=== PATIENT | male | born 1950 | race American Indian/Alaskan Native ===

== ENCOUNTER 2019-12-20 07:49 | Outpatient (CLI) | payer OTHER ==
--- NOTE | 2019-12-20 08:44 | Cat Scan Report ---
CT ABDOMEN AND PELVIS WITHOUT CONTRAST HISTORY: C61 MALIGNANT NEOPLASM OF PROSTATE COMPARISON: None. TECHNIQUE: Axial CT images were obtained through the abdomen and pelvis without IV contrast. Sagittal and coronal reformatted images. All CT scans at this location are performed using CT dose reduction for ALARA by means of automated exposure control. FINDINGS: CT ABDOMEN: Lung Bases: Clear. Liver: No significant abnormality. Biliary: Cholecystectomy. No biliary dilatation. Spleen: No significant abnormality. Unenlarged. Pancreas: No significant abnormality. Adrenals: No significant abnormality. 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 The left kidney is normal size and position. There ar e 3 calyceal stones in the mid left kidney measuring up to 5 mm. No associated hydronephrosis. 1 cm r enal parapelvic cyst is noted. Lymphatics: No lymphadenopathy. Vasculature: Moderate to severe diffuse calcifications in the distal aorta and iliac arteries. A left common and external iliac stent are in place. Femoral to femoral anastomosis graft is also noted. Bowel/Peritoneum: No significant abnormality. No free air. No free fluid. Normal appendix. CT PELVIS: : The prostate gland is normal size and contains radiotherapy beads. The bladder and distal ureters are unremarkable. Osseous Structures: No suspicious blastic bony lesions are detected. Additional Findings: None IMPRESSION: No evidence for metastatic disease. Right nephrectomy changes. Left nephrolithiasis, nonobstructing. Moderate to severe atherosclerotic disease of the aorta and iliac arteries. Signer Name: Dave Sewell Jr, MD Signed: 12/20/2019 8:39 AM Workstation Name: [id number]
== END 2019-12-20 07:50 | disposition home or self-care (01) ==
LOC: CT 07:49
PROVIDERS: ATTEND Urology
DX: N20.0 Calculus of kidney (principal); I70.0 Atherosclerosis of aorta; N28.1 Cyst of kidney, acquired; Z90.5 Acquired absence of kidney; C61 Malignant neoplasm of prostate; Z90.49 Acquired absence of other specified parts of digestive tract; Z98.890 Other specified postprocedural states
CPT/HCPCS: 74176